=== PATIENT | female | born 1955 | race Caucasian/White ===

== ENCOUNTER 2017-02-01 13:56 | Inpatient (IN) | payer BC ==
[~2017-02-01] VITALS: Ht 157.5 cm; Wt 59.0 kg
[~2017-02-01 13:56] MED LIST: DOCU-30 PO; HYDR-3138 PO
[2017-02-01] MEDS ORDERED: SODIUM CHLORIDE FLUSH 10ML SYR IVF ONE (14:30)
[2017-02-01] MEDS ORDERED: LISI-167 PO (14:48)
[2017-02-01] MEDS ORDERED: NICO1PAT49 TD (14:50)
[2017-02-01 15:06] LABS: BLOOD UREA NITROGEN 7 mg/dL (7-18)
[2017-02-01] MEDS ORDERED: HEPARIN 5,000 UNITS/ML, 1ML IV PRN (17:00)
[2017-02-01] MEDS ORDERED: HEPARIN 25,000 UNITS/500ML PMX 500 ML IV PRN (17:00)
[2017-02-01] MEDS ORDERED: HEPARIN 5,000 UNITS/ML, 1ML IV ONE (17:00)
[2017-02-01] MEDS ORDERED: HEPARIN 5,000 UNITS/ML, 1ML ONE (17:19)
[2017-02-01] MEDS ORDERED: HEPARIN 25,000 UNITS/500ML PMX 500 ML ONE (17:19)
[2017-02-01] MEDS ORDERED: METOPROLOL TARTRATE 50 MG TABLET ONE (17:52)
[2017-02-01] MEDS ORDERED: POTASSIUM CHLORIDE 20 MEQ TAB.ER.PRT ONE (17:52)
[2017-02-01] MEDS: METOPROLOL TARTRATE 25 MG TABLET PO SCH (17:54)
[2017-02-01] MEDS ORDERED: ENALAPRILAT 1.25 MG/ML, 2ML IVPush PRN (18:00)
[2017-02-01] MEDS ORDERED: POTASSIUM CHLORIDE 20 MEQ TAB.ER.PRT PO ONE (18:00)
[2017-02-01] MEDS ORDERED: ACETAMINOPHEN 325 MG TABLET PO PRN (18:00)
[2017-02-01] MEDS ORDERED: morphine SULFATE 10 MG/ML, 1ML IVPush PRN (18:00)
[2017-02-01] MEDS ORDERED: ONDANSETRON 2MG/ML, 2ML IVPush PRN (18:00)
[2017-02-01] MEDS ORDERED: TEMAZEPAM 15 MG CAPSULE PO PRN (18:00)
[2017-02-01] MEDS ORDERED: POLYETHYLENE GLYCOL 17 GM PACKET PO PRN (18:00)
[2017-02-01 19:35] VITALS: BP 166/97
[2017-02-01] MEDS ORDERED: NICOTINE 21 MG/24 HR PATCH.TD24 TD SCH (20:00)
[2017-02-01] MEDS: LISINOPRIL 10 MG TABLET PO SCH (20:21)
[2017-02-02] MEDS ORDERED: HEPARIN 25,000 UNITS/500ML PMX 500 ML IV PRN
[2017-02-02 00:21] VITALS: BP 146/83
[2017-02-02] MEDS: METOPROLOL TARTRATE 25 MG TABLET PO SCH ×2 (03:07→17:32)
[2017-02-02 03:10] VITALS: BP 176/95
[2017-02-02 06:43] VITALS: BP 157/69
[2017-02-02] MEDS ORDERED: PROTAMINE SULFATE 10 MG/ML, 5ML ONE (06:50)
[2017-02-02] MEDS ORDERED: HEPARIN 5,000 UNITS/ML, 1ML ONE (06:50)
[2017-02-02] MEDS ORDERED: BACITRACIN 50,000 UNIT ONE (06:51)
[2017-02-02] MEDS ORDERED: THROMBIN 20,000 UNIT VIAL TP ONE (06:51)
[2017-02-02] MEDS ORDERED: HEPARIN 1,000 UNITS/ML, 10ML ONE (06:51)
[2017-02-02 06:54] LABS: ASPARTATE AMINO TRANSFERASE 19 U/L (15-37); BLOOD UREA NITROGEN 6 mg/dL (7-18)
[2017-02-02] MEDS: LISINOPRIL 10 MG TABLET PO SCH ×2 (09:00→21:02)
[2017-02-02] MEDS ORDERED: GLYCOPYRROLATE 0.2MG/1ML ONE (09:18)
[2017-02-02] MEDS ORDERED: CEFAZOLIN 1,000 MG ONE (09:18)
[2017-02-02] MEDS ORDERED: PROPOFOL 10 MG/ML, 20ML ONE (09:18)
[2017-02-02] MEDS ORDERED: EPHEDRINE 50 MG/ML, 1ML ONE (09:18)
[2017-02-02] MEDS ORDERED: FENTANYL PF 250 MCG/5ML ONE (09:21)
[2017-02-02] MEDS ORDERED: ACETAMINOPHEN 325 MG TABLET PO PRN (11:00)
[2017-02-02] MEDS ORDERED: OXYcodone 5 MG/5 ML ORAL.SOL UDC PO PRN (11:00)
[2017-02-02] MEDS ORDERED: hydrALAzine 20 MG/ML, 1ML IV PRN (11:00)
[2017-02-02] MEDS ORDERED: ONDANSETRON 2MG/ML, 2ML IVPush PRN (11:00)
[2017-02-02] MEDS ORDERED: ACETAMINOPHEN 650 MG/20.3 ML UDC ONE (11:07)
[2017-02-02] MEDS ORDERED: ACETAMINOPHEN 325 MG/10.15 ML UDC ONE (11:07)
[2017-02-02] MEDS ORDERED: OXYcodone 5 MG/5 ML ORAL.SOL UDC ONE (11:07)
[2017-02-02] MEDS ORDERED: FENTANYL PF 100 MCG/2ML ONE (11:07)
[2017-02-02] MEDS: FENTANYL PF 100 MCG/2ML IV PRN ×2 (11:14→11:24)
[2017-02-02 13:22] VITALS: BP 151/85
[2017-02-02] MEDS ORDERED: HYDROcodone/APAP 5/325 TABLET PO PRN (13:30)
[2017-02-02] MEDS ORDERED: morphine SULFATE 10 MG/ML, 1ML IV PRN (13:30)
[2017-02-02] MEDS: POTASSIUM CHLORIDE 20 MEQ in LACTATED RINGERS 1,000 ML IV SCH (15:11)
[2017-02-02] MEDS: CEFAZOLIN PMX 1GM/50ML 50 ML IVPB SCH (17:12)
[2017-02-02] MEDS ORDERED: WARFARIN 7.5 MG TABLET PO-COUM ONE (18:00)
[2017-02-02 20:28] VITALS: BP 133/79
[2017-02-02] MEDS: SODIUM CHLORIDE FLUSH 10ML SYR IVF SCH (21:00)
[2017-02-03 00:10] VITALS: BP 131/77
[2017-02-03] MEDS: CEFAZOLIN PMX 1GM/50ML 50 ML IVPB SCH (01:15)
[2017-02-03] MEDS: POTASSIUM CHLORIDE 20 MEQ in LACTATED RINGERS 1,000 ML IV SCH ×3 (01:16→21:12)
[2017-02-03 04:00] VITALS: BP 156/83
[2017-02-03] MEDS: METOPROLOL TARTRATE 25 MG TABLET PO SCH ×2 (05:40→17:26)
[2017-02-03] MEDS: HYDROcodone/APAP 5/325 TABLET PO PRN ×2 (06:08→13:51)
[2017-02-03 06:19] LABS: ASPARTATE AMINO TRANSFERASE 23 U/L (15-37); BLOOD UREA NITROGEN 4 mg/dL (7-18)
[2017-02-03 08:00] VITALS: BP 125/78
[2017-02-03] MEDS: SODIUM CHLORIDE FLUSH 10ML SYR IVF SCH ×2 (09:00→20:26)
[2017-02-03] MEDS: LISINOPRIL 10 MG TABLET PO SCH (09:48)
[2017-02-03] MEDS: NICOTINE 21 MG/24 HR PATCH.TD24 TD SCH (09:49)
[2017-02-03] MEDS ORDERED: WARFARIN MODERAT DOSE PROTOCOL XX SCH (12:00)
[2017-02-03 13:37] VITALS: BP 150/82
[2017-02-03] MEDS ORDERED: METOPROLOL TARTRATE 50 MG TABLET PO SCH (18:00)
[2017-02-03] MEDS ORDERED: WARFARIN 7.5 MG TABLET PO-COUM ONE (18:00)
[2017-02-03 20:17] VITALS: BP 168/82
[2017-02-03] MEDS: LISINOPRIL 20 MG TABLET PO SCH (20:26)
[2017-02-04] MEDS: HYDROcodone/APAP 5/325 TABLET PO PRN ×4 (00:52→23:53)
[2017-02-04 01:00] VITALS: BP 172/98
[2017-02-04 01:30] VITALS: BP 158/92
[2017-02-04] MEDS: METOPROLOL TARTRATE 25 MG TABLET PO SCH (05:15)
[2017-02-04] MEDS: POTASSIUM CHLORIDE 20 MEQ in LACTATED RINGERS 1,000 ML IV SCH (07:18)
[2017-02-04 08:16] VITALS: BP 145/69
[2017-02-04] MEDS: NICOTINE 21 MG/24 HR PATCH.TD24 TD SCH (08:21)
[2017-02-04] MEDS: SODIUM CHLORIDE FLUSH 10ML SYR IVF SCH ×2 (08:21→21:27)
[2017-02-04] MEDS: LISINOPRIL 20 MG TABLET PO SCH ×2 (08:21→21:27)
[2017-02-04 14:47] VITALS: BP 150/90
[2017-02-04] MEDS: METOPROLOL TARTRATE 50 MG TABLET PO SCH (17:18)
[2017-02-04 17:19] VITALS: BP 144/77
[2017-02-04] MEDS ORDERED: WARFARIN 5 MG TABLET PO-COUM SCH (18:00)
[2017-02-04 20:41] VITALS: BP 130/67
[2017-02-05 03:30] VITALS: BP 136/78
[2017-02-05] MEDS: METOPROLOL TARTRATE 50 MG TABLET PO SCH (06:38)
[2017-02-05 08:12] VITALS: BP 132/77
[2017-02-05] MEDS: NICOTINE 21 MG/24 HR PATCH.TD24 TD SCH (09:28)
[2017-02-05] MEDS: SODIUM CHLORIDE FLUSH 10ML SYR IVF SCH (09:28)
[2017-02-05] MEDS: LISINOPRIL 20 MG TABLET PO SCH (09:28)
[2017-02-05] MEDS ORDERED: METO50TA82 PO (12:33)
[2017-02-05] MEDS ORDERED: LISI-170 PO (12:33)
[2017-02-05] MEDS ORDERED: HYDR-3240 PO (12:33)
[2017-02-05] MEDS ORDERED: TRAM50TA2 PO (12:33)
[2017-02-05] MEDS ORDERED: POLY17PO5 PO (12:33)
[2017-02-05] MEDS ORDERED: WARF4TAB7 PO (12:35)
[2017-02-05 13:30] VITALS: BP 130/76
== END 2017-02-05 13:45 | disposition home or self-care (01) | DRG 252 ==
LOC: SUATTDRO 17:15 → OR 17:28 → EDIP 17:44 → 4NOR 19:17
PROVIDERS: ADMIT Internal Medicine; ATTEND Internal Medicine
PROC: 04UL0JZ Supplement Left Femoral Artery with Synthetic Substitute, Open Approach (ICD-10-PCS; 2017-02-02)
PROC: 04CL0ZZ Extirpation of Matter from Left Femoral Artery, Open Approach (ICD-10-PCS; principal; 2017-02-02 08:45)
DX: T82.868A Thrombosis due to vascular prosthetic devices, implants and grafts, initial encounter (principal); E43 Unspecified severe protein-calorie malnutrition; D68.69 Other thrombophilia; T82.898A Other specified complication of vascular prosthetic devices, implants and grafts, initial encounter; Y83.2 Surgical operation with anastomosis, bypass or graft as the cause of abnormal reaction of the patient, or of later complication, without mention of misadventure at the time of the procedure; I10 Essential (primary) hypertension; J44.9 Chronic obstructive pulmonary disease, unspecified; I73.9 Peripheral vascular disease, unspecified; F12.90 Cannabis use, unspecified, uncomplicated; I99.8 Other disorder of circulatory system; F17.210 Nicotine dependence, cigarettes, uncomplicated; F10.20 Alcohol dependence, uncomplicated; M21.379 Foot drop, unspecified foot; Z82.49 Family history of ischemic heart disease and other diseases of the circulatory system; Z68.23 Body mass index [BMI] 23.0-23.9, adult; Z79.01 Long term (current) use of anticoagulants
CPT/HCPCS: 36415; 71010; 80048; 80053; 82040; 83735; 84100; 85025; 85520; 85610; 93005; 93922; 93926; 93979; 96365; 96375; J0690; J1644; J2704; J2720; J3010; J3480; J3490; C1757; J2270; J7120

== ENCOUNTER 2018-08-04 02:51 | Inpatient (IN) | payer BC ==
[~2018-08-04] VITALS: Ht 157.5 cm; Wt 74.1 kg
[~2018-08-04 02:51] MED LIST changes: +DOCU-131 PO; -DOCU-30 PO; -HYDR-3138 PO; +HYDR-3237 PO; +HYDR-3240 PO; +LISI-167 PO; +LISI-170 PO; +METO50TA82 PO; +NICO1PAT49 TD; +POLY17PO5 PO; +TRAM50TA2 PO; +WARF4TAB65 PO
[2018-08-04] MEDS ORDERED: ROSU40TA PO (03:00)
[2018-08-04] MEDS ORDERED: RIVA10TA2 PO (03:00)
--- NOTE | 2018-08-04 03:24 | NUR ---
PT IN CT AT THIS TIME.
[2018-08-04 04:00] LABS: BASOPHILS # (AUTO) 0.02 x10^3/uL (0-0.1); BASOPHILS % (AUTO) 0 % (0-1); EOSINOPHILS # (AUTO) 0.22 x10^3/uL (0-0.4); EOSINOPHILS % (AUTO) 2 % (1-7); LYMPHOCYTES # (AUTO) 2.26 x10^3/uL (1-3.4); LYMPHOCYTES % (AUTO) 24 % (22-44); MD NO; MEAN CORPUSCULAR HEMOGLOBIN 29.7 pg (27.0-34.8); MEAN CORPUSCULAR HGB CONC 32.8 g/dL (32.4-35.8); MEAN CORPUSCULAR VOLUME 90.4 fL (80-100); MEAN PLATELET VOLUME 8.5 fL (7.4-10.4); MONOCYTES # (AUTO) 0.84 x10^3/uL (0.2-0.8); MONOCYTES % (AUTO) 9 % (2-9); NEUTROPHILS % (AUTO) 64 % (42-75); PLATELET COUNT 198 x10^3/uL (130-400); RED CELL DISTRIBUTION WIDTH 15.7 % (9.6-15.2)
[2018-08-04 04:07] LABS: ALBUMIN 3.1 g/dL (3.4-5.0); ANION GAP 6 mmol/L (5-15); CALCIUM 8.6 mg/dL (8.5-10.1); CHLORIDE 101 mmol/L (98-107); CREATININE 0.72 mg/dL (0.55-1.02)
[2018-08-04] MEDS ORDERED: HEPARIN 5,000 UNITS/ML, 1ML IV ONE (05:00)
[2018-08-04 05:10] LABS: INTERNATIONAL NORMALIZED RATIO 1.22 (0.93-1.1); PROTHROMBIN TIME 12.8 Seconds (9.6-11.5)
[2018-08-04] MEDS ORDERED: HEPARIN 5,000 UNITS/ML, 1ML ONE (05:22)
[2018-08-04] MEDS ORDERED: HEPARIN 25,000 UNITS/500ML PMX 500 ML ONE (05:22)
[2018-08-04] MEDS ORDERED: MORPHINE SULFATE 4 MG/ML, 1ML ONE (05:22)
[2018-08-04] MEDS ORDERED: ONDANSETRON 2MG/ML, 2ML ONE (05:22)
[2018-08-04] MEDS ORDERED: MORPHINE SULFATE 4 MG/ML, 1ML IVPush PRN ×2 (05:30→06:30)
[2018-08-04] MEDS ORDERED: ONDANSETRON 2MG/ML, 2ML IVPush ONE (05:30)
--- NOTE | 2018-08-04 05:33 | NUR ---
ASSISTED IN PT CARE: HEPARIN BOLUS DOSE AND DRIP RATE VERIFIED WITH LEISA WALKER AT BEDSIDE.
[2018-08-04] MEDS: HEPARIN 25,000 UNITS/500ML PMX 500 ML IV PRN (05:34)
--- NOTE | 2018-08-04 05:52 | NUR ---
PT GIVEN PILLOW AND PLACED IN POSITION OF COMFORT PER REQUEST. PT DENIES FURTHER NEEDS AT THIS TIME. CALL LIGHT ON LAP.
[2018-08-04] MEDS ORDERED: OMNIPAQUE 350 MG/ML, 100ML BOTTLE ONE (06:06)
[2018-08-04] MEDS ORDERED: ONDANSETRON 2MG/ML, 2ML IVPush PRN ×2 (06:30→09:00)
[2018-08-04 07:58] VITALS: BP 146/81
[2018-08-04] MEDS: LISINOPRIL 20 MG TABLET PO SCH ×2 (09:00→19:34)
[2018-08-04] MEDS ORDERED: ACETAMINOPHEN 325 MG TABLET PO PRN (09:00)
[2018-08-04] MEDS ORDERED: ENALAPRILAT 1.25 MG/ML, 2ML IVPush PRN (09:00)
[2018-08-04] MEDS ORDERED: DOCUSATE 100 MG CAPSULE PO PRN (09:00)
[2018-08-04] MEDS ORDERED: POLYETHYLENE GLYCOL 17 GM PACKET PO PRN (09:00)
[2018-08-04] MEDS ORDERED: BISACODYL 10 MG SUPP PR PRN (09:00)
[2018-08-04] MEDS: morphine SULFATE 10 MG/ML, 1ML IVPush PRN ×3 (10:11→19:34)
[2018-08-04 15:47] VITALS: BP 130/63
[2018-08-04] MEDS: METOPROLOL TARTRATE 50 MG TABLET PO SCH (18:25)
[2018-08-04 19:14] VITALS: BP 107/69
[2018-08-04] MEDS ORDERED: HEPARIN 5,000 UNITS/ML, 1ML IV PRN (22:00)
[2018-08-05] MEDS: morphine SULFATE 10 MG/ML, 1ML IVPush PRN ×3 (00:27→08:36)
[2018-08-05 01:12] VITALS: BP 113/67
[2018-08-05 03:44] LABS: BASOPHILS # (AUTO) 0.04 x10^3/uL (0-0.1); BASOPHILS % (AUTO) 0 % (0-1); EOSINOPHILS # (AUTO) 0.22 x10^3/uL (0-0.4); EOSINOPHILS % (AUTO) 2 % (1-7); LYMPHOCYTES # (AUTO) 2.66 x10^3/uL (1-3.4); LYMPHOCYTES % (AUTO) 27 % (22-44); MD NO; MEAN CORPUSCULAR HEMOGLOBIN 29.4 pg (27.0-34.8); MEAN CORPUSCULAR HGB CONC 32.4 g/dL (32.4-35.8); MEAN CORPUSCULAR VOLUME 90.6 fL (80-100); MEAN PLATELET VOLUME 8.8 fL (7.4-10.4); MONOCYTES # (AUTO) 1.01 x10^3/uL (0.2-0.8); MONOCYTES % (AUTO) 10 % (2-9); NEUTROPHILS % (AUTO) 61 % (42-75); PLATELET COUNT 190 x10^3/uL (130-400); RED BLOOD COUNT 4.77 x10^6/uL (3.82-5.3); RED CELL DISTRIBUTION WIDTH 16.3 % (9.6-15.2)
[2018-08-05 03:56] LABS: ANION GAP 7 mmol/L (5-15); CALCIUM 8.4 mg/dL (8.5-10.1); CHLORIDE 102 mmol/L (98-107); CREATININE 0.66 mg/dL (0.55-1.02)
[2018-08-05] MEDS: METOPROLOL TARTRATE 50 MG TABLET PO SCH ×2 (05:49→20:06)
[2018-08-05] MEDS: SODIUM CHLORIDE 0.9% 1,000 ML IV SCH ×2 (07:00→18:20)
[2018-08-05 07:09] VITALS: BP 117/70
[2018-08-05] MEDS ORDERED: ACETAMINOPHEN 325 MG TABLET PO PRN ×2 (08:00→18:00)
[2018-08-05] MEDS: HEPARIN 25,000 UNITS/500ML PMX 500 ML IV PRN ×2 (08:42→19:39)
[2018-08-05] MEDS: LISINOPRIL 20 MG TABLET PO SCH ×2 (09:00→20:05)
[2018-08-05] MEDS ORDERED: MIDAZOLAM 1 MG/ML, 2ML ONE (10:53)
[2018-08-05] MEDS ORDERED: FENTANYL PF 250 MCG/5ML ONE ×2 (10:53→22:01)
[2018-08-05] MEDS ORDERED: GLYCOPYRROLATE 0.2MG/1ML, 5ML ONE (10:56)
[2018-08-05] MEDS ORDERED: ONDANSETRON 2MG/ML, 2ML ONE (10:56)
[2018-08-05] MEDS ORDERED: PROPOFOL 10 MG/ML, 20ML ONE (10:56)
[2018-08-05] MEDS ORDERED: CEFAZOLIN 1,000 MG ONE (10:56)
[2018-08-05] MEDS ORDERED: ROCURONIUM 10MG/ML,5ML ONE (10:56)
[2018-08-05] MEDS ORDERED: NEOSTIGMINE 1 MG/ML, 10ML ONE (10:56)
[2018-08-05] MEDS ORDERED: DEXAMETHASONE 4 MG/ML, 1ML ONE (10:56)
[2018-08-05] MEDS ORDERED: THROMBIN 20,000 UNIT VIAL TP ONE ×2 (11:08→21:15)
[2018-08-05] MEDS ORDERED: LIDOCAINE 1%, 20ML ONE ×2 (11:08→21:14)
[2018-08-05] MEDS ORDERED: PROTAMINE SULFATE 10 MG/ML, 5ML ONE ×2 (11:08→21:15)
[2018-08-05] MEDS ORDERED: BACITRACIN 50,000 UNIT ONE ×2 (11:08→21:16)
[2018-08-05] MEDS ORDERED: HEPARIN 1,000 UNITS/ML, 30ML ONE ×3 (11:08→21:15)
[2018-08-05] MEDS ORDERED: HYDROmorphone 2 MG/ML, 1ML IVPush PRN ×2 (11:30→23:30)
[2018-08-05] MEDS ORDERED: PROMETHAZINE 12.5 MG SUPP PR PRN (11:30)
[2018-08-05] MEDS ORDERED: LABETALOL 5MG/ML, 20ML IV PRN ×2 (11:30→23:30)
[2018-08-05] MEDS ORDERED: MORPHINE SULFATE 4 MG/ML, 1ML IVPush PRN (11:30)
[2018-08-05] MEDS ORDERED: PROMETHAZINE 25 MG/ML, 1ML IV PRN ×2 (11:30→23:30)
[2018-08-05] MEDS ORDERED: hydrALAzine 20 MG/ML, 1ML IV PRN ×2 (11:30→23:30)
[2018-08-05] MEDS ORDERED: MEPERIDINE/PF 25MG/0.5ML IVPush PRN ×2 (11:30→23:30)
[2018-08-05] MEDS ORDERED: PROMETHAZINE 25 MG/ML, 1ML IM PRN ×3 (11:30→18:00)
[2018-08-05] MEDS ORDERED: ONDANSETRON 2MG/ML, 2ML IV PRN ×2 (11:30→18:00)
[2018-08-05] MEDS ORDERED: ONDANSETRON ODT 8 MG PO PRN (11:30)
[2018-08-05] MEDS ORDERED: HALOPERIDOL 5 MG/ML IV PRN ×2 (11:30→23:30)
[2018-08-05] MEDS ORDERED: OXYcodone 5 MG/5 ML ORAL.SOL UDC PO PRN ×2 (11:30→23:30)
[2018-08-05] MEDS ORDERED: PROMETHAZINE 25 MG SUPP PR PRN (11:30)
[2018-08-05] MEDS ORDERED: VASOPRESSIN 20 UNIT/ML, 1ML ONE ×2 (13:56→14:17)
[2018-08-05] MEDS ORDERED: EPHEDRINE 50 MG/ML, 1ML ONE (14:37)
[2018-08-05] MEDS: FENTANYL PF 100 MCG/2ML IV PRN ×2 (15:30→16:00)
[2018-08-05] MEDS ORDERED: OXYcodone 5 MG/5 ML ORAL.SOL UDC ONE (15:45)
[2018-08-05] MEDS ORDERED: FENTANYL PF 100 MCG/2ML ONE (15:45)
[2018-08-05] MEDS ORDERED: ALBUTEROL/IPRATROPIUM 2.5MG/0.5MG, 3 ML ONE (16:26)
[2018-08-05] MEDS ORDERED: MIDAZOLAM 1 MG/ML, 2ML IV PRN (17:30)
[2018-08-05] MEDS ORDERED: ALBUTEROL/IPRATROPIUM 2.5MG/0.5MG, 3 ML NPPB PRN (17:30)
[2018-08-05] MEDS ORDERED: HEPARIN 5,000 UNITS/ML, 1ML IV ONE (19:30)
[2018-08-05] MEDS: POTASSIUM CHLORIDE 20 MEQ in D5%-0.45% NACL 1,000 ML IV SCH (19:46)
[2018-08-05 19:49] VITALS: BP 108/56
[2018-08-05] MEDS: SODIUM CHLORIDE FLUSH 10ML SYR IVF SCH (20:06)
[2018-08-05] MEDS: CEFAZOLIN PMX 2GM/50ML 50 ML IVPB SCH (21:24)
[2018-08-05] MEDS ORDERED: PHENYLEPHRINE 10 MG/ML ONE (22:18)
[2018-08-05] MEDS ORDERED: METOPROLOL 1 MG/ML, 5ML IV PRN (23:30)
[2018-08-05] MEDS ORDERED: DIPHENHYDRAMINE 50 MG/ML, 1ML IVPush PRN (23:30)
[2018-08-05] MEDS ORDERED: PROCHLORPERAZINE 5 MG/ML, 2ML IV PRN (23:30)
[2018-08-05] MEDS ORDERED: FENTANYL PF 100 MCG/2ML IV PRN (23:30)
[2018-08-05] MEDS ORDERED: OMNIPAQUE 350 MG/ML, 150 ML BOTTLE ONE (23:32)
[2018-08-06] MEDS: HEPARIN 25,000 UNITS/500ML PMX 500 ML IV SCH (01:24)
[2018-08-06 02:20] VITALS: BP 99/59
[2018-08-06] MEDS: SODIUM CHLORIDE 0.9% 1,000 ML IV SCH ×2 (03:00→09:09)
[2018-08-06] MEDS ORDERED: HEPARIN 25,000 UNITS/500ML PMX 500 ML IV PRN (05:00)
[2018-08-06] MEDS: CEFAZOLIN PMX 2GM/50ML 50 ML IVPB SCH (05:24)
[2018-08-06] MEDS: METOPROLOL TARTRATE 50 MG TABLET PO SCH ×2 (05:25→17:11)
[2018-08-06 06:30] LABS: BASOPHILS # (AUTO) 0.04 x10^3/uL (0-0.1); BASOPHILS % (AUTO) 0 % (0-1); EOSINOPHILS # (AUTO) 0.01 x10^3/uL (0-0.4); EOSINOPHILS % (AUTO) 0 % (1-7); LYMPHOCYTES # (AUTO) 1.12 x10^3/uL (1-3.4); LYMPHOCYTES % (AUTO) 8 % (22-44); MD NO; MEAN CORPUSCULAR HEMOGLOBIN 30.2 pg (27.0-34.8); MEAN CORPUSCULAR HGB CONC 33.3 g/dL (32.4-35.8); MEAN CORPUSCULAR VOLUME 90.6 fL (80-100); MEAN PLATELET VOLUME 9.5 fL (7.4-10.4); MONOCYTES # (AUTO) 1.09 x10^3/uL (0.2-0.8); MONOCYTES % (AUTO) 8 % (2-9); NEUTROPHILS # (AUTO) 11.52 x10^3/uL (1.8-6.8); NEUTROPHILS % (AUTO) 84 % (42-75); PLATELET COUNT 158 x10^3/uL (130-400); RED BLOOD COUNT 3.75 x10^6/uL (3.82-5.3); RED CELL DISTRIBUTION WIDTH 15.9 % (9.6-15.2)
[2018-08-06 06:37] LABS: ALBUMIN 2.7 g/dL (3.4-5.0); ANION GAP 8 mmol/L (5-15); CALCIUM 8.2 mg/dL (8.5-10.1); CHLORIDE 104 mmol/L (98-107); CREATININE 0.86 mg/dL (0.55-1.02)
[2018-08-06] MEDS ORDERED: SODIUM CHLORIDE 0.9% 1,000 ML IV SCH (08:00)
[2018-08-06 08:29] VITALS: BP 91/58
[2018-08-06] MEDS: SODIUM CHLORIDE FLUSH 10ML SYR IVF SCH ×2 (09:09→20:37)
[2018-08-06] MEDS: LISINOPRIL 20 MG TABLET PO SCH ×2 (09:09→20:37)
[2018-08-06 13:35] VITALS: BP 82/46
[2018-08-06 14:43] VITALS: BP 92/56
[2018-08-06 20:11] VITALS: BP 87/50
[2018-08-07] MEDS: HEPARIN 25,000 UNITS/500ML PMX 500 ML IV SCH (02:39)
[2018-08-07 02:52] VITALS: BP 92/57
[2018-08-07] MEDS: METOPROLOL TARTRATE 50 MG TABLET PO SCH (05:51)
[2018-08-07 06:08] LABS: BASOPHILS # (AUTO) 0.06 x10^3/uL (0-0.1); BASOPHILS % (AUTO) 1 % (0-1); EOSINOPHILS # (AUTO) 0.13 x10^3/uL (0-0.4); EOSINOPHILS % (AUTO) 1 % (1-7); LYMPHOCYTES # (AUTO) 2.47 x10^3/uL (1-3.4); LYMPHOCYTES % (AUTO) 22 % (22-44); MD NO; MEAN CORPUSCULAR HEMOGLOBIN 30.3 pg (27.0-34.8); MEAN CORPUSCULAR HGB CONC 33.2 g/dL (32.4-35.8); MEAN CORPUSCULAR VOLUME 91.2 fL (80-100); MEAN PLATELET VOLUME 9.5 fL (7.4-10.4); MONOCYTES # (AUTO) 1.36 x10^3/uL (0.2-0.8); MONOCYTES % (AUTO) 12 % (2-9); NEUTROPHILS # (AUTO) 7.46 x10^3/uL (1.8-6.8); NEUTROPHILS % (AUTO) 65 % (42-75); PLATELET COUNT 130 x10^3/uL (130-400); RED BLOOD COUNT 3.02 x10^6/uL (3.82-5.3); RED CELL DISTRIBUTION WIDTH 16.2 % (9.6-15.2)
[2018-08-07] MEDS: SODIUM CHLORIDE 0.9% 1,000 ML IV SCH ×2 (06:13→15:55)
[2018-08-07 08:37] VITALS: BP 88/55
[2018-08-07] MEDS: SODIUM CHLORIDE FLUSH 10ML SYR IVF SCH ×2 (08:52→20:43)
[2018-08-07 13:42] VITALS: BP 107/69
[2018-08-07 16:45] VITALS: BP 100/66
[2018-08-07] MEDS: METOPROLOL TARTRATE 25 MG TABLET PO SCH (16:48)
[2018-08-07 19:19] VITALS: BP 113/70
[2018-08-08] MEDS: SODIUM CHLORIDE 0.9% 1,000 ML IV SCH ×3 (01:35→21:41)
[2018-08-08 02:10] VITALS: BP 117/67
[2018-08-08] MEDS: HEPARIN 25,000 UNITS/500ML PMX 500 ML IV SCH (03:03)
[2018-08-08 05:13] VITALS: BP 106/66
[2018-08-08] MEDS: METOPROLOL TARTRATE 25 MG TABLET PO SCH ×2 (05:16→17:39)
[2018-08-08 05:37] LABS: BASOPHILS # (AUTO) 0.12 x10^3/uL (0-0.1); BASOPHILS % (AUTO) 1 % (0-1); EOSINOPHILS # (AUTO) 0.51 x10^3/uL (0-0.4); EOSINOPHILS % (AUTO) 4 % (1-7); LYMPHOCYTES # (AUTO) 2.51 x10^3/uL (1-3.4); LYMPHOCYTES % (AUTO) 21 % (22-44); MD NO; MEAN CORPUSCULAR HEMOGLOBIN 30.5 pg (27.0-34.8); MEAN CORPUSCULAR HGB CONC 33.3 g/dL (32.4-35.8); MEAN CORPUSCULAR VOLUME 91.7 fL (80-100); MEAN PLATELET VOLUME 9.1 fL (7.4-10.4); MONOCYTES % (AUTO) 11 % (2-9); NEUTROPHILS # (AUTO) 7.73 x10^3/uL (1.8-6.8); NEUTROPHILS % (AUTO) 64 % (42-75); PLATELET COUNT 141 x10^3/uL (130-400); RED BLOOD COUNT 3.01 x10^6/uL (3.82-5.3); RED CELL DISTRIBUTION WIDTH 15.9 % (9.6-15.2)
[2018-08-08 08:00] VITALS: BP 91/61
[2018-08-08] MEDS: SODIUM CHLORIDE FLUSH 10ML SYR IVF SCH ×2 (08:58→19:58)
[2018-08-08] MEDS ORDERED: MAGNESIUM CITRATE 300ML ORAL SOL PO ONE ×2 (09:00)
[2018-08-08] MEDS: SENNA/DOCUSATE TABLET PO SCH ×2 (09:58→19:58)
[2018-08-08] MEDS: NICOTINE 7 MG/24 HR PATCH.TD24 TD SCH (09:58)
[2018-08-08 14:00] VITALS: BP 105/57
[2018-08-08] MEDS: ENOXAPARIN 40 MG/0.4 ML SQ SCH (18:05)
[2018-08-08 19:04] VITALS: BP 95/62
[2018-08-09 01:32] VITALS: BP 96/54
[2018-08-09] MEDS: METOPROLOL TARTRATE 25 MG TABLET PO SCH ×2 (06:38→17:57)
[2018-08-09 07:19] VITALS: BP 130/71
[2018-08-09] MEDS: SODIUM CHLORIDE FLUSH 10ML SYR IVF SCH ×2 (08:22→23:54)
[2018-08-09] MEDS: SODIUM CHLORIDE 0.9% 1,000 ML IV SCH ×2 (08:22→23:54)
[2018-08-09] MEDS: SENNA/DOCUSATE TABLET PO SCH ×2 (08:22→21:00)
[2018-08-09] MEDS: NICOTINE 7 MG/24 HR PATCH.TD24 TD SCH (10:16)
[2018-08-09] MEDS ORDERED: PROPOFOL 50 ML ONE (13:30)
[2018-08-09] MEDS ORDERED: FENTANYL PF 250 MCG/5ML ONE (13:30)
[2018-08-09] MEDS ORDERED: MIDAZOLAM 1 MG/ML, 2ML ONE (13:30)
[2018-08-09] MEDS ORDERED: KETAMINE 50 MG/ML, 10ML ONE (14:02)
[2018-08-09] MEDS ORDERED: EPHEDRINE 50 MG/ML, 1ML IM PRN (15:00)
[2018-08-09] MEDS ORDERED: MIDAZOLAM 1 MG/ML, 2ML IV PRN (15:00)
[2018-08-09] MEDS ORDERED: EPHEDRINE 50 MG/ML, 1ML IVPush PRN (15:00)
[2018-08-09] MEDS ORDERED: ONDANSETRON ODT 8 MG PO PRN (15:00)
[2018-08-09] MEDS ORDERED: OXYcodone 5 MG/5 ML ORAL.SOL UDC PO PRN (15:00)
[2018-08-09] MEDS ORDERED: FENTANYL PF 100 MCG/2ML IV PRN (15:00)
[2018-08-09] MEDS ORDERED: hydrALAzine 20 MG/ML, 1ML IV PRN (15:00)
[2018-08-09] MEDS ORDERED: PROMETHAZINE 25 MG SUPP PR PRN (15:00)
[2018-08-09] MEDS ORDERED: METOPROLOL 1 MG/ML, 5ML IV PRN (15:00)
[2018-08-09] MEDS ORDERED: DIPHENHYDRAMINE 50 MG/ML, 1ML IVPush PRN (15:00)
[2018-08-09] MEDS ORDERED: MORPHINE SULFATE 4 MG/ML, 1ML IVPush PRN (15:00)
[2018-08-09] MEDS ORDERED: ONDANSETRON 2MG/ML, 2ML IV PRN (15:00)
[2018-08-09] MEDS ORDERED: PROMETHAZINE 25 MG/ML, 1ML IV PRN (15:00)
[2018-08-09] MEDS ORDERED: PROMETHAZINE 12.5 MG SUPP PR PRN (15:00)
[2018-08-09] MEDS ORDERED: OXYcodone 5 MG/5 ML ORAL.SOL UDC ONE (15:55)
[2018-08-09 19:20] VITALS: BP 122/66
[2018-08-10] MEDS: ENOXAPARIN 40 MG/0.4 ML SQ SCH ×2 (00:04→20:02)
[2018-08-10 01:40] VITALS: BP 129/72
[2018-08-10] MEDS: METOPROLOL TARTRATE 25 MG TABLET PO SCH ×2 (05:58→17:45)
[2018-08-10 06:00] LABS: BASOPHILS # (AUTO) 0.06 x10^3/uL (0-0.1); BASOPHILS % (AUTO) 1 % (0-1); EOSINOPHILS % (AUTO) 0 % (1-7); LYMPHOCYTES # (AUTO) 1.02 x10^3/uL (1-3.4); LYMPHOCYTES % (AUTO) 12 % (22-44); MD NO; MEAN CORPUSCULAR HEMOGLOBIN 29.7 pg (27.0-34.8); MEAN CORPUSCULAR HGB CONC 32.5 g/dL (32.4-35.8); MEAN CORPUSCULAR VOLUME 91.2 fL (80-100); MEAN PLATELET VOLUME 9.4 fL (7.4-10.4); MONOCYTES % (AUTO) 5 % (2-9); NEUTROPHILS % (AUTO) 83 % (42-75); PLATELET COUNT 209 x10^3/uL (130-400); RED BLOOD COUNT 3.11 x10^6/uL (3.82-5.3); RED CELL DISTRIBUTION WIDTH 16.9 % (9.6-15.2)
[2018-08-10 09:12] VITALS: BP 103/64
[2018-08-10] MEDS: NICOTINE 7 MG/24 HR PATCH.TD24 TD SCH (09:24)
[2018-08-10] MEDS: SODIUM CHLORIDE FLUSH 10ML SYR IVF SCH ×2 (09:24→20:04)
[2018-08-10] MEDS: SENNA/DOCUSATE TABLET PO SCH ×2 (09:25→20:04)
[2018-08-10] MEDS: SODIUM CHLORIDE 0.9% 1,000 ML IV SCH (10:47)
[2018-08-10 13:01] VITALS: BP 109/66
[2018-08-10 16:04] LABS: INTERNATIONAL NORMALIZED RATIO 0.94 (0.93-1.1)
[2018-08-10 17:41] VITALS: BP 113/69
[2018-08-10] MEDS ORDERED: WARFARIN 7.5 MG TABLET PO-COUM ONE (18:00)
[2018-08-10 18:32] VITALS: BP 106/62
[2018-08-10] MEDS: ATORVASTATIN 80 MG TABLET PO SCH (20:03)
[2018-08-11] MEDS: SODIUM CHLORIDE 0.9% 1,000 ML IV SCH (01:15)
[2018-08-11 01:20] VITALS: BP 111/60
[2018-08-11 05:31] LABS: CREATININE 0.57 mg/dL (0.55-1.02)
[2018-08-11] MEDS: METOPROLOL TARTRATE 25 MG TABLET PO SCH ×2 (06:41→16:50)
[2018-08-11 06:45] LABS: INTERNATIONAL NORMALIZED RATIO 1.2 (0.93-1.1); PROTHROMBIN TIME 12.6 Seconds (9.6-11.5)
[2018-08-11 08:05] VITALS: BP 110/69
[2018-08-11] MEDS: SENNA/DOCUSATE TABLET PO SCH ×2 (09:19→20:31)
[2018-08-11] MEDS: SODIUM CHLORIDE FLUSH 10ML SYR IVF SCH ×2 (09:20→20:31)
[2018-08-11] MEDS: NICOTINE 7 MG/24 HR PATCH.TD24 TD SCH (09:20)
[2018-08-11] MEDS: WARFARIN MODERAT DOSE PROTOCOL XX SCH (12:58)
[2018-08-11 13:04] VITALS: BP 107/68
[2018-08-11 16:46] VITALS: BP 148/85
[2018-08-11] MEDS ORDERED: WARFARIN 7.5 MG TABLET PO-COUM SCH (18:00)
[2018-08-11 19:38] VITALS: BP 117/71
[2018-08-11] MEDS: ATORVASTATIN 80 MG TABLET PO SCH (20:30)
[2018-08-11] MEDS: ENOXAPARIN 40 MG/0.4 ML SQ SCH (20:30)
[2018-08-12 01:43] VITALS: BP 136/73
[2018-08-12 05:51] LABS: INTERNATIONAL NORMALIZED RATIO 3.48 (0.93-1.1); PROTHROMBIN TIME 35.2 Seconds (9.6-11.5)
[2018-08-12 06:27] VITALS: BP 130/75
[2018-08-12] MEDS: METOPROLOL TARTRATE 25 MG TABLET PO SCH ×2 (07:27→18:16)
[2018-08-12] MEDS: SODIUM CHLORIDE FLUSH 10ML SYR IVF SCH ×2 (08:24→22:26)
[2018-08-12] MEDS: SENNA/DOCUSATE TABLET PO SCH ×2 (08:25→22:26)
[2018-08-12] MEDS: NICOTINE 7 MG/24 HR PATCH.TD24 TD SCH (10:09)
[2018-08-12] MEDS: WARFARIN MODERAT DOSE PROTOCOL XX SCH (11:42)
[2018-08-12 13:26] VITALS: BP 116/73
[2018-08-12 19:29] VITALS: BP 106/69
[2018-08-12] MEDS: ATORVASTATIN 80 MG TABLET PO SCH (22:26)
[2018-08-12] MEDS: ENOXAPARIN 40 MG/0.4 ML SQ SCH (22:26)
[2018-08-13 01:36] VITALS: BP 138/71
[2018-08-13] MEDS: METOPROLOL TARTRATE 25 MG TABLET PO SCH (05:41)
[2018-08-13 05:46] LABS: INTERNATIONAL NORMALIZED RATIO 3.63 (0.93-1.1); PROTHROMBIN TIME 36.6 Seconds (9.6-11.5)
[2018-08-13] MEDS ORDERED: HOLD COUMADIN MC PRN (08:00)
[2018-08-13 08:20] VITALS: BP 112/59
[2018-08-13] MEDS: SENNA/DOCUSATE TABLET PO SCH (09:18)
[2018-08-13] MEDS: NICOTINE 7 MG/24 HR PATCH.TD24 TD SCH (09:44)
[2018-08-13] MEDS: SODIUM CHLORIDE FLUSH 10ML SYR IVF SCH (10:05)
[2018-08-13] MEDS: WARFARIN MODERAT DOSE PROTOCOL XX SCH (11:31)
[2018-08-13 13:34] VITALS: BP 133/68
[2018-08-13] MEDS ORDERED: ATOR-2 PO (14:01)
[2018-08-13] MEDS ORDERED: METO25TA35 PO (14:01)
== END 2018-08-13 16:54 | disposition home health service (06) | DRG 240 ==
LOC: ED 03:54 → EDIP 06:10 → 3NE 07:03 → 4NOR 08-05 13:34
PROVIDERS: ADMIT Hospitalist; ATTEND Hospitalist
PROC: 04CL0ZZ Extirpation of Matter from Left Femoral Artery, Open Approach (ICD-10-PCS; 2018-08-05)
PROC: 04CN0ZZ Extirpation of Matter from Left Popliteal Artery, Open Approach (ICD-10-PCS; 2018-08-05)
PROC: 04CU0ZZ Extirpation of Matter from Left Peroneal Artery, Open Approach (ICD-10-PCS; 2018-08-05)
PROC: 04CS0ZZ Extirpation of Matter from Left Posterior Tibial Artery, Open Approach (ICD-10-PCS; 2018-08-05)
PROC: 04UL0KZ Supplement Left Femoral Artery with Nonautologous Tissue Substitute, Open Approach (ICD-10-PCS; 2018-08-05)
PROC: 4A133B1 Monitoring of Arterial Pressure, Peripheral, Percutaneous Approach (ICD-10-PCS; 2018-08-05)
PROC: 04UL0KZ Supplement Left Femoral Artery with Nonautologous Tissue Substitute, Open Approach (ICD-10-PCS; 2018-08-06)
PROC: 04CL0ZZ Extirpation of Matter from Left Femoral Artery, Open Approach (ICD-10-PCS; 2018-08-06)
PROC: 041L0JL Bypass Left Femoral Artery to Popliteal Artery with Synthetic Substitute, Open Approach (ICD-10-PCS; 2018-08-06)
PROC: 04CN0ZZ Extirpation of Matter from Left Popliteal Artery, Open Approach (ICD-10-PCS; 2018-08-06)
PROC: 0Y6J0Z1 Detachment at Left Lower Leg, High, Open Approach (ICD-10-PCS; principal; 2018-08-09 17:30)
DX: T82.868A Thrombosis due to vascular prosthetic devices, implants and grafts, initial encounter (principal); E87.1 Hypo-osmolality and hyponatremia; I74.3 Embolism and thrombosis of arteries of the lower extremities; I74.5 Embolism and thrombosis of iliac artery; I82.91 Chronic embolism and thrombosis of unspecified vein; D64.9 Anemia, unspecified; F12.90 Cannabis use, unspecified, uncomplicated; F17.210 Nicotine dependence, cigarettes, uncomplicated; I10 Essential (primary) hypertension; I73.9 Peripheral vascular disease, unspecified; J44.9 Chronic obstructive pulmonary disease, unspecified; K59.00 Constipation, unspecified; Y83.8 Other surgical procedures as the cause of abnormal reaction of the patient, or of later complication, without mention of misadventure at the time of the procedure; Y92.89 Other specified places as the place of occurrence of the external cause; I99.8 Other disorder of circulatory system; Z79.01 Long term (current) use of anticoagulants; Z86.718 Personal history of other venous thrombosis and embolism
CPT/HCPCS: 36415; 99291; J3490; J7620; 75635; 80048; 82040; 82330; 82550; 82565; 82803; 82947; 83605; 83735; 84100; 84132; 84295; 85014; 85025; 85520; 85610; 88307; 88311; 93005; 96374; 96375; C1729; G0378; J0690; J1100; J1644; J1650; J2250; J2270; J2405; J2704; J2710; J2720; J3010; J3480; Q9967; C1757; C1768; J2370; J7030

== ENCOUNTER → 2020-01-22 | Outpatient (CLI) | payer BC, MEDICARE ==
[~2020-01-22] MED LIST changes: +ATOR-2 PO; +METO25TA35 PO; +RIVA10TA2 PO; +ROSU40TA PO
== END | disposition home or self-care (01) ==
LOC: CVU 08:23
PROVIDERS: ATTEND Surgery
DX: I70.213 Atherosclerosis of native arteries of extremities with intermittent claudication, bilateral legs (principal); Z89.612 Acquired absence of left leg above knee
CPT/HCPCS: 93922; 93925